=== PATIENT | male | born 1940 | race Caucasian/White ===

== ENCOUNTER 2023-03-05 09:39 | Emergency (ER) | payer MEDICARE, BC, SELFPAY ==
[2023-03-05] VITALS (37 sets, daily range): BP systolic 131–176; BP diastolic 72–99; PULSE 59–84; RESP 9–28; TEMP 36.7; O2SAT 94–99
--- NOTE | 2023-03-05 09:30 | RT.EKG_ITS ---
APPROVED REPORT Exam: Resting ECG Reason for Exam: desrythmia Patient Location: E HR:74 bpm ECG Measurements Heart Rate 74 AXIS ID 421 P 145 QRSd 102 QRS -41 QT 371 T 39 QTc 412 Conclusion Sinus or ectopic atrial rhythm...P axis (-45,135) Prolonged ID interval...ID >220, V-rate 50- 90 Left anterior fascicular block...axis(240,-40), init forces inf Agree with above. LAD, 1st degree av block - bifascicular block Probable left ventricular hypertrophy...multiple LVH criteria T wave inversion in aVL has resolved. No STEMI
--- NOTE | 2023-03-05 09:43 | ED.GENADUL_ITS ---
Discharge Plan Disposition Patient Disposition: Home Discharge Details Clinical Impression: AV junctional tachycardia, History of first degree atrioventricular block Primary Care Provider: Elbert Finch ED Provider: Cami Carvalho Home Meds and New Rx's Prescriptions: No Action magnesium 250 mg Tablet 250 mg PO DAILY iron 40 mg Capsule 40 mg PO DAILY rosuvastatin 10 mg Tablet 10 mg PO DAILY PreserVision AREDS 2,148 mcg-113 mg-45 mg-17.4mg Tablet 2 tab PO BID Rx Instructions: administer with AM and PM meals aspirin 81 mg Capsule 81 mg PO DAILY Discharge Instructions Instructions: Heart Block (ED), Valsalva Maneuver (ED), Tachycardia (ED) Additional Instructions: 1. Call Dr. Reilly your school business manager. The retail representative at [facility] is going to contact him about arranging for a Zio patch. 2. Avoid caffeine and stimulants and chocolate. 3. You may continue cardiac rehab but you should return here if you develop any recurrent symptoms or symptoms which do not resolve with Valsalva maneuvers or putting your face in a bowl of ice cold water. Discharge Data Discharge Physician: Cami Carvalho Medical Decision Making This is an 82-year-old male who recently underwent TAVR procedure who presents from cardiac rehab after he experienced what appeared to be an accelerated wide- complex tachycardia. He is currently in normal sinus rhythm but has a significant first-degree AV block. He tells me he was on metoprolol prior to his TAVR and that prior to the procedure he experience similar episodes. My plan is to obtain blood work and then consult cardiology at [facility]. We will keep him on the monitor and obtain blood work including cardiac enzymes electrolytes comprehensive metabolic panel and coagulation studies. He is currently stable and is not experiencing any chest pain. He does tell me he occasionally experiences skipped beats and fatigue in association with these episodes as well as mild shortness of breath and dyspnea on exertion. Medical Records Medical records reviewed: Yes I reviewed the patient's medical records. Imaging Data Radiologic Study: Imaging: X-Ray (Portable chest x-ray) Radiologist's impression: No acute findings Lab Data Lab results reviewed: Yes I reviewed the patient's lab results. Lab results narrative: As above ECG Data Attestation: I personally reviewed and interpreted this ECG (s) as follows: Prior ECG tracings: available for review HPI General Date/Time Provider Initiated Documentation: 03/05/23 09:42 . Limitations to Documentation: no limitations . Information obtained by: patient, family, RN notes reviewed and old records reviewed . HPI Narrative: Time seen was on arrival in bed 1. The patient is a 82-year-old male with no [facility] history of coronary disease, but who has a history of AAA repair and hypertension, as well as hypercholesterolemia who presents with intermittent chest discomfort radiating to the left arm and neck. She last varying amounts of time but usually a few minutes. He began having episodes while at rest 2 days ago. He says that the chest discomfort does not get worse with exertion but he does get short of breath with exertion. Today he had substernal chest discomfort rating to the left arm and neck which was 3-4 out of 10 in severity and described as dull. It is not pleuritic. He denies any aggravating or alleviating factors. The pain began at 7 AM today. The chest pain has resolved but he still has left neck and left arm pain. He tells me he has had stress testing in the past which was negative. He took his morning medications and does take baby aspirin which she also took today. He denies any leg pain or abdominal pain. He denies any URI symptoms fever or chills. Patient tells me he has not taken sidalafil in a long time. He also tells me he has had a AAA repair that was leaking when it was repaired. He tells me he has chronic kidney disease and that the left kidney is not working and the right kidney is only partially working. He was told he should not have any IV contrast. He also has a history of bladder and kidney cancer for which he is followed at [facility] [place]. His AAA repair was done at [facility]. He denies any fevers or chills. He denies any cough. He denies any abdominal pain nausea or vomiting, leg pain or swelling Related Data Home Medications Medication Instructions Recorded Confirmed aspirin 81 mg capsule 81 mg PO DAILY 03/05/23 03/05/23 iron 40 mg capsule 40 mg PO DAILY 03/05/23 03/05/23 magnesium 250 mg tablet 250 mg PO DAILY 03/05/23 03/05/23 rosuvastatin 10 mg tablet 10 mg PO DAILY 03/05/23 03/05/23 vitamins A,C,S-qoqt-oaiojk 2,148 2 tab PO BID 03/05/23 03/05/23 mcg-113 mg-45 mg-17.4 mg tablet (PreserVision AREDS) Allergies Allergy/AdvReac Type Severity Reaction Status Date / Time Sulfa (Sulfonamide Allergy Severe Anaphylaxis Verified 07/03/21 08:43 Antibiotics) sulfamethoxazole Allergy Severe Anaphylaxis Verified 07/03/21 08:43 [From Bactrim] trimethoprim [From Bactrim] Allergy Severe Anaphylaxis Verified 07/03/21 08:43 codeine Allergy Unknown Verified 07/03/21 08:43 iopamidol [From [id number]] Allergy Unknown Verified 07/03/21 08:43 venom-honey bee Allergy Unknown rash Verified 07/03/21 08:43 ciprofloxacin [From Cipro] AdvReac Intermediate Diarrhea Verified 07/03/21 08:43 naproxen AdvReac Intermediate dizziness Verified 07/03/21 08:43 vasodilators AdvReac Uncoded 07/03/21 08:43 Review of Systems Narrative: see hpi PFSH All Active Problems (Updated 03/05/23 @ 12:58 by Cami Carvalho MD) AV junctional tachycardia (Acute) History of first degree atrioventricular block (Acute) Tinnitus, bilateral (Acute) Sensorineural hearing loss, bilateral (Acute) History of excessive cerumen (Acute) Hyperlipidemia (Acute) Medical History Bursitis Pneumonia Surgical History H/O colonoscopy due to ileius 1997 History of appendectomy 1960 History of tonsillectomy and adenoidectomy Family History Father Heart disease Hypertension Mother Hypertension Brother FH: mental illness Alzheimer disease Son Alive and well Social History Smoking/Tobacco Use Status: Never Second Hand Exposure: Yes Smoking risk assessment performed?: Yes Alcohol Intake: current Alcohol Intake frequency: a few times a week Alcohol type: beer and wine Drug use: Never Household members: spouse Housing: house Number of Children: 2 current occupation: retired Do you feel safe at home: Yes Do you feel safe in your relationship?: Yes Exam Narrative Exam Narrative: The patient is a well-developed well-nourished male lying on the stretcher in no acute distress. He was mildly hypertensive on arrival but that improved while he was in the emergency department. He remained in normal sinus rhythm with occasional PVCs. He was not tachycardic tachypneic or febrile. His room air sat was between 96 to 98% which is normal Const General: cooperative, healthy appearing, comfortable, no acute distress, well developed, well groomed and well hydrated Nutritional Appearance: average body habitus and well nourished Orientation: alert, awake and oriented x3 HENMT Head: normal to inspection, normocephalic and atraumatic Ears: hearing grossly normal bilaterally and external ears normal General nose exam: external nose normal, nares normal and no nasal discharge Face and sinus: normal facial exam, sinuses nontender and face symmetric Mouth: oral mucosae normal, lip normal, tongue normal, oropharynx normal, moist mucous membranes and other (Normal phonation. The patient is handling secretions.) Throat: posterior oropharynx normal and uvula midline Eyes General: appearance normal, both eyes and all related structures Eyelids: eyelids normal Conjunctivae: conjunctivae normal Sclera: sclerae normal Cornea: corneas normal Pupils: PERRL EOM: EOM intact bilaterally and No nystagmus Neck Neck: normal visual inspection, full ROM, no lymphadenopathy, no meningeal signs, trachea midline and supple Lymphatic: no lymphadenopathy noted Chest Chest: normal inspection of the chest Resp Effort & Inspection: normal respiratory effort, able to speak in complete sentences, no audible wheezes, no nasal flaring, no respiratory distress, no retractions, no stridor, not tachypneic, no tracheal deviation, no use of accessory muscles, No prolonged expiratory phase and other (Normal inspiratory to expiratory ratio.) Auscultation: clear to auscultation bilaterally, no rales, no rhonchi, no wheezes and no rubs Tactile Fremitus: tactile fremitus absent Cardio Jugular venous pressure: no JVD Palpation: normal PMI Rate: regular rate Rhythm: regular rhythm Heart Sounds: S1 normal, S2 normal, no gallops, no murmurs and no rubs GI Inspection: normal to inspection and non-distended Palpation: soft, no hepatosplenomegaly, no guarding and nontender Percussion: normal to percussion Auscultation: normal bowel sounds General: No CVA tenderness Back/Spine/Pelvis Back: no CVA tenderness and No back tenderness Cervical Spine: normal cervical lordosis, cervical ROM normal, No cervical muscular tenderness, No pain with cervical ROM, No cervical spinal tenderness and No step off deformity Thoracic/Lumbar Spine: thoracic and lumbar spine normal to inspection, No thoracic spinal tenderness and No lumbar spinal tenderness Pelvis: no pain with anterior-posterior compression and no pain with lateral compression Skin General skin exam: no rashes or lesions noted, turgor normal, no petechiae, no purpura and other (Skin is normal for ethnicity.) Lesions: no lesions Rashes: no rashes Trauma: no lacerations or abrasions Neuro General: patient alert, patient awake, patient oriented x3, moves all extremities, no meningeal signs, no focal motor deficits and CN's II-XI intact bilaterally Cranial Nerves: CN's II-XI intact bilaterally, PERRL, accommodation normal, EOM intact bilaterally, no nystagmus, facial strength normal, tongue midline, hearing normal and no nystagmus Cognition: normal cognition Speech: speech normal Gait: normal gait Motor: muscle tone normal throughout and strength 5/5 throughout Sensory Exam: no sensory deficits noted Extrem General: normal to inspection, full ROM, capillary refill normal and no calf tenderness Other: Trace symmetric bilateral pedal edema no homans signs or cords. Tenderness. Distal pulses are intact Psych Appearance: grossly normal Affect: normal affect Attitude: cooperative Thought Process: normal Thought Content: normal Insight: insight good Judgment: judgment good Other: The patient appears to have capacity make medical decisions. Course After 3 sublingual nitroglycerin the neck and arm pain have resolved. A repeat EKG is pending. Reevaluation(s) Time: 13:17 Reevaluation: The patient remained stable in the emergency department Consultations Consultation #1: [facility] cardiology consult requested 10:05 AM Time: 12:54 Consultation #2: The school business manager on-call was an retail representative who reviewed the patient's old records. The patient does have a history of a junctional tachycardia but no A-fib. He advised that the patient be discharged without resuming the metoprolol because of his significant first-degree AV block and concern this might worsen it. He advised that the patient follow-up with cardiology locally, Dr. Blackman. He will send a note regarding today's visit to Dr. Blackman to arrange for a Zio patch to be placed as an outpatient. Lab/Test Results Lab/Test Results: Normal white count, normal H&H, mildly elevated glucose. GFR is 67.02. Normal TSH. Critical Care Time Critical Care Time Critical Care Time: Yes Total Critical Care Time: 41 Attestation: This includes time at the bedside, review of radiographs and lab work, consultation with the retail representative at [facility].
--- NOTE | 2023-03-05 09:45 | DI.RAD_ITS ---
Exam(s) XR PORTABLE CHEST AP EXAM: XR PORTABLE CHEST AP CLINICAL HISTORY: s/p TAVR, arrhythmia TECHNIQUE: 2D digital imaging was performed. COMPARISON: No exams were available for comparison FINDINGS: LUNGS: Clear. No pleural abnormality seen. HEART: Normal size. AORTA: Normal diameter. TAVR. BONES: Unremarkable for age. Soft tissues: Unremarkable. IMPRESSION: No acute findings. DATA REPOSITORY: RADIATION DOSE DELIVERED:
[2023-03-05] MEDS: Normal Saline 1,000 ML 150 ML IV (10:06)
--- NOTE | 2023-03-05 10:15 | NUR.NOTE ---
Faxed EKG to [facility] Transfer per Dr Carvalho request. Nursing Note:
[2023-03-05 10:17] LABS: Abs Immature Grans 0.02 10^3/uL (0.0-0.06); Absolute Basophil Count 0.05 10^3/uL (0.0-0.2); Absolute Eosinophil Count 0.14 10^3/uL (0.0-0.7); Absolute Lymphocyte Count 1.83 10^3/uL (1.2-3.4); Absolute Monocyte Count 0.68 10^3/uL (0.1-0.8); Basophils % 0.7; Eosinophils % 1.9; HCT 43.9 % (40.0-50.0); HGB 14.8 g/dL (13.5-17.5); Immature Grans % 0.3; Lymphocytes % 24.3; MCH 32.4 pg (27.0-33.0); MCHC 33.7 % (32.0-36.0); MCV 96 fL (80-95); MPV 10.6 fL (8.0-11.0); Neutrophils % 63.8; Platelet Count 157 10^3/uL (130-400); RBC 4.57 10^6/uL (4.36-5.78); RDW 12.6 % (11.8-14.1); RDW-SD 45.1 fL; WBC 7.52 10^3/uL (4.4-10.8)
[2023-03-05 10:28] LABS: PTT Activated 24.7 sec (21.5-31.9); Prothrombin Time 10.4 sec (9.3-11.0)
[2023-03-05 10:40] LABS: ALT 26 U/L (16-63); AST 14 U/L (15-37); Albumin 3.8 g/dL (3.4-5.0); Alkaline Phosphatase 82 U/L (46-116); Anion Gap 6.6 mmol/L (3-11); BUN 19 mg/dL (7-18); Bilirubin, Total 0.4 mg/dL (0.2-1.0); CO2 29.4 mmol/L (21.0-32.0); CREATININE 1.1 mg/dL (0.70-1.30); Calcium 9.4 mg/dL (8.5-10.1); Chloride 103 mmol/L (98-107); Estimated GFR 67.02 (mL/min/1.73m2); Glucose 137 mg/dL (74-106); Magnesium 2.2 mg/dL (1.8-2.4); NT-proBNP 823 pg/mL (<300); Sodium 139 mmol/L (136-145); TSH (W/Ref FT4) 0.94 uIU/mL (0.36-3.74); Total Protein 7.9 g/dL (6.4-8.2); Troponin I < 50 ng/L (<or=60)
[2023-03-05 13:07] LABS: Troponin I < 50 ng/L (<or=60)
--- NOTE | 2023-03-06 09:16 | NUR.NOTE ---
Accessed pt chart to determine number of EKG orders. Duplicate order cancelled. Nursing Note:
== END 2023-03-05 13:34 | disposition home or self-care (01) ==
PROVIDERS: Emergency Provider Emergency Medicine Emergency Medical Services; PCP Family Medicine
DX: I44.4 Left anterior fascicular block (principal); I44.0 Atrioventricular block, first degree; I49.9 Cardiac arrhythmia, unspecified; R06.02 Shortness of breath
CPT/HCPCS: 36415; 80053; 93005; 99291; 71045; 83735; 83880; 84443; 84484; 85025; 85610; 85730; 93010

== ENCOUNTER 2023-03-05 11:36 | Outpatient (CLI) | payer MEDICARE, BC, SELFPAY | END 2023-03-05 11:37 | disposition home or self-care (01) | LOC: DI.CARD 11:37 | PROVIDERS: PCP Family Medicine; Visit Provider Internal Medicine Cardiovascular Disease | DX: I47.1 Supraventricular tachycardia (principal) | CPT/HCPCS: 93010 ==

== ENCOUNTER 2023-03-14 09:56 | Outpatient (RCR) | payer MEDICARE, BC, SELFPAY ==
--- NOTE | 2023-02-24 12:00 | RT.EKG_ITS ---
APPROVED REPORT Exam: Resting ECG Reason for Exam: baseline Patient Location: O HR:88 bpm ECG Measurements Heart Rate 88 AXIS VT [id number] P [id number] QRSd 90 QRS -21 QT 374 T 67 QTc 453 Conclusion Accelerated junctional rhythm...absent P waves, accele'd V-rate Left ventricular hypertrophy...multiple voltage criteria
== END 2023-03-15 23:59 | disposition home or self-care (01) ==
LOC: CR 09:56
PROVIDERS: PCP Family Medicine; Visit Provider Internal Medicine Cardiovascular Disease
DX: Z95.2 Presence of prosthetic heart valve (principal); I35.0 Nonrheumatic aortic (valve) stenosis; Z51.89 Encounter for other specified aftercare
CPT/HCPCS: S9472

== ENCOUNTER 2023-03-26 09:00 | Outpatient (RCR) | payer MEDICARE, BC, SELFPAY ==
--- NOTE | 2023-03-26 09:30 | RT.EKG_ITS ---
APPROVED REPORT Exam: Resting ECG Reason for Exam: rhythm change Patient Location: O HR:52 bpm ECG Measurements Heart Rate 52 AXIS AZ 484 P 92 QRSd 105 QRS -41 QT 458 T -10 QTc 426 Conclusion Sinus rhythm...normal P axis, V-rate 50- 99 Prolonged AZ interval...AZ >220, V-rate 50- 90 Left anterior fascicular block...axis(240,-40), init forces inf Left ventricular hypertrophy...multiple voltage criteria Borderline T abnormalities, inferior leads...T flat/neg, II III aVF
== END 2023-04-15 23:59 | disposition home or self-care (01) ==
LOC: CR 09:00
PROVIDERS: PCP Family Medicine; Visit Provider Internal Medicine Cardiovascular Disease
DX: I35.0 Nonrheumatic aortic (valve) stenosis (principal); Z51.89 Encounter for other specified aftercare; Z95.4 Presence of other heart-valve replacement
CPT/HCPCS: S9472